=== PATIENT | male | born 1945 | race Caucasian/White ===

== ENCOUNTER 2020-06-01 00:50 | Outpatient (CLI) | payer MEDICARE, BC, SELFPAY ==
--- NOTE | 2020-06-01 10:30 | DI.NM_ITS ---
APPROVED REPORT Exam: Exercise Treadmill Patient Location: Out-Patient Room/Bed: Stress Nurse: Michaela Hanna RN BMI: 27.47 Baseline Rhythm: Sinus Bradycardia Indications: Esophogeal cancer, Pre op, Renal transplant. Medical History Medical History: HTN, HLD, CKD s/p living donor right renal transplant, Esophageal cancer. Cardiac Medications: Aspirin, Metoprolol-hydrochlorothiazide, Lisinopril, Omeprazole, Prednisone, Sim vastatin. Allergies: No known drug allergies Cardiac Risk Factors: HTN, Hyperlipidemia, FHX of CAD Previous Cardiac Procedures: None. Pretest Chest Pain Characteristics: No chest pain Exercise History: Sedentary Physical Disabilities: None. Lung Sounds: Clear to auscultation Heart Sounds: Regular Stress Test Details Test: Exercise stress testing was performed using a Benji protocol. Nuclear Acquisition: Rest Tc-99m/Stress Tc-99m 1 day Rest Isotope: Tc-99m Sestamibi. Dose: 12.1 Date: 06/01/2020 Injection Time: 1045 Stress Isotope: Tc-99m Sestamibi. Dose: 38.1 Date: 06/01/2020 Injection Time: 1305 HR Resting HR Supine: 47 bpm Max Heart Rate (APMHR): 146 bpm Resting HR Standin bpm Target HR (85% APMHR): 124 bpm Max HR Achieved: 130 bpm % of APMHR: 89 Recovery HR: 75 bpm HR response to stress: Normal HR response to stress Comment: patient did not hold beta renetta. BP Resting BP Supine: 150/88 mmHg Resting BP Standin/82 mmHg Max BP: 168/70 mmHg Recovery BP: 148/82 mmHg BP response to stress: Normal blood pressure response to stress. ECG Resting ECG: Sinus Bradycardia Ectopy: None. Stress ECG: Sinus Tachycardia ST Change: No significant ST segment changes noted. Arrhythmia: None. Recovery ECG: Sinus Bradycardia Recovery ST Change: No significant ST segment changes noted. Clinical Reason for Termination: Fatigue Stress Symptoms: General Fatigue Exercise duration: 09 min16 sec Highest Stage Reached: Stage 3: 3.4 mph at 14% grade. Exercise capacity: 10.6 METs Stress ECG Conclusion 1. The patient exercised for 9 minutes (10 minutes). Exercise was stopped due to fatigue. 2. The patient had no symptoms suggestive of ischemia. 3. There is no evidence of ischemia on the EKG portion of the exam. Stress Test Summary STAGE Time (mins) Speed (mph) Grade (%) HR BP SYMPTOMS METS Supine 47 150/88 Standing 63 143/82 1 3 1.7 10 107 154/80 4.6 2 6 2.5 12 114 162/78 7 1 min recovery 115 168/70 3 min recovery 78 160/74 6 min recovery 75 148/82 MPI Conclusion The ejection fraction was 50% with stress. There were no wall motion abnormalities. There was no evidence of ischemia on the imaging portion of the exam. This represents a normal SPECT stress test.
== END 2020-06-01 01:10 ==
PROVIDERS: PCP Family Medicine; Visit Provider Thoracic Surgery (Cardiothoracic Vascular Surgery)
DX: Z01.810 Encounter for preprocedural cardiovascular examination (principal); C15.9 Malignant neoplasm of esophagus, unspecified; Z94.0 Kidney transplant status; I10 Essential (primary) hypertension; E78.5 Hyperlipidemia, unspecified; Z82.49 Family history of ischemic heart disease and other diseases of the circulatory system
CPT/HCPCS: 78452; 93016; 93018; 93017

== ENCOUNTER 2020-06-26 03:49 | Outpatient (CLI) | payer MEDICARE, BC, SELFPAY ==
[2020-06-26 08:01] LABS: Abs Immature Grans 0.02 10^3/uL (0.0-0.06); Absolute Basophil Count 0.02 10^3/uL (0.0-0.2); Absolute Eosinophil Count 0.15 10^3/uL (0.0-0.7); Absolute Lymphocyte Count 1.25 10^3/uL (1.2-3.4); Absolute Monocyte Count 0.48 10^3/uL (0.1-0.8); Absolute Neutrophil Count 4.72 10^3/uL (1.2-6.7); Basophils % 0.3; Eosinophils % 2.3; HCT 40.8 % (40.0-50.0); HGB 13.9 g/dL (13.5-17.5); Immature Grans % 0.3; Lymphocytes % 18.8; MCH 31.4 pg (27.0-33.0); MCHC 34.1 % (32.0-36.0); MCV 92.1 fL (80-95); MPV 10.2 fL (8.0-11.0); Monocytes % 7.2; Neutrophils % 71.1; Nucleated RBC 0 %; Platelet Count 132 10^3/uL (130-400); RBC 4.43 10^6/uL (4.36-5.78); RDW 12.7 % (11.8-14.1); RDW-SD 42.7 fL; WBC 6.64 10^3/uL (4.4-10.8)
[2020-06-26 08:12] LABS: ALT 35 U/L (16-63); AST 20 U/L (15-37); Albumin 3.8 g/dL (3.4-5.0); Alkaline Phosphatase 49 U/L (46-116); Anion Gap 6.3 mmol/L (3-11); Bilirubin, Total 0.5 mg/dL (0.2-1.0); CO2 27.7 mmol/L (21.0-32.0); CREATININE 1.38 mg/dL (0.70-1.30); Calcium 8.6 mg/dL (8.5-10.1); Chloride 105 mmol/L (98-107); Estimated GFR 50.37 (mL/min/1.73m2); Glucose 157 mg/dL (74-106); Magnesium 1.6 mg/dL (1.8-2.4); Potassium 3.9 mmol/L (3.5-5.1); Sodium 139 mmol/L (136-145); Total Protein 6.9 g/dL (6.4-8.2)
[2020-06-26 08:27] LABS: BUN 22 mg/dL (7-18)
== END 2020-06-26 04:09 ==
PROVIDERS: PCP Family Medicine; Visit Provider Internal Medicine Medical Oncology
DX: C15.5 Malignant neoplasm of lower third of esophagus (principal)
CPT/HCPCS: 36415; 80053; 83735; 85025

== ENCOUNTER 2020-07-03 02:35 | Outpatient (CLI) | payer MEDICARE, BC, SELFPAY ==
[2020-07-03 07:53] LABS: Abs Immature Grans 0.07 10^3/uL (0.0-0.06); Absolute Basophil Count 0.02 10^3/uL (0.0-0.2); Absolute Eosinophil Count 0.08 10^3/uL (0.0-0.7); Absolute Lymphocyte Count 0.57 10^3/uL (1.2-3.4); Absolute Monocyte Count 0.18 10^3/uL (0.1-0.8); Absolute Neutrophil Count 3.92 10^3/uL (1.2-6.7); Basophils % 0.4; Eosinophils % 1.7; HCT 40.4 % (40.0-50.0); HGB 13.6 g/dL (13.5-17.5); Immature Grans % 1.4; Lymphocytes % 11.8; MCH 31.3 pg (27.0-33.0); MCHC 33.7 % (32.0-36.0); MCV 92.9 fL (80-95); MPV 10.6 fL (8.0-11.0); Monocytes % 3.7; Nucleated RBC 0 %; Platelet Count 136 10^3/uL (130-400); RBC 4.35 10^6/uL (4.36-5.78); RDW 12.5 % (11.8-14.1); RDW-SD 42.5 fL; WBC 4.84 10^3/uL (4.4-10.8)
[2020-07-03 08:20] LABS: ALT 32 U/L (16-63); AST 18 U/L (15-37); Albumin 3.7 g/dL (3.4-5.0); Alkaline Phosphatase 46 U/L (46-116); BUN 24 mg/dL (7-18); Bilirubin, Total 0.5 mg/dL (0.2-1.0); CREATININE 1.23 mg/dL (0.70-1.30); Calcium 8.8 mg/dL (8.5-10.1); Chloride 106 mmol/L (98-107); Estimated GFR 57.52 (mL/min/1.73m2); Glucose 200 mg/dL (74-106); Magnesium 1.6 mg/dL (1.8-2.4); Potassium 4.6 mmol/L (3.5-5.1); Sodium 140 mmol/L (136-145); Total Protein 6.9 g/dL (6.4-8.2)
== END 2020-07-03 02:55 ==
PROVIDERS: PCP Family Medicine; Visit Provider Internal Medicine Medical Oncology
DX: C15.5 Malignant neoplasm of lower third of esophagus (principal)
CPT/HCPCS: 36415; 80053; 83735; 85025

== ENCOUNTER 2020-07-10 03:07 | Outpatient (CLI) | payer MEDICARE, BC, SELFPAY ==
[2020-07-10 07:52] LABS: Abs Immature Grans 0.04 10^3/uL (0.0-0.06); Absolute Basophil Count 0.02 10^3/uL (0.0-0.2); Absolute Eosinophil Count 0.07 10^3/uL (0.0-0.7); Absolute Lymphocyte Count 0.47 10^3/uL (1.2-3.4); Absolute Monocyte Count 0.27 10^3/uL (0.1-0.8); Basophils % 0.4; Eosinophils % 1.5; HCT 41.2 % (40.0-50.0); HGB 14.1 g/dL (13.5-17.5); Immature Grans % 0.8; Lymphocytes % 9.9; MCH 31.5 pg (27.0-33.0); MCHC 34.2 % (32.0-36.0); MPV 10.3 fL (8.0-11.0); Monocytes % 5.7; Neutrophils % 81.7; Nucleated RBC 0 %; Platelet Count 129 10^3/uL (130-400); RBC 4.48 10^6/uL (4.36-5.78); RDW 12.6 % (11.8-14.1); RDW-SD 41.3 fL; WBC 4.77 10^3/uL (4.4-10.8)
[2020-07-10 08:07] LABS: ALT 36 U/L (16-63); AST 21 U/L (15-37); Alkaline Phosphatase 48 U/L (46-116); Anion Gap 7.6 mmol/L (3-11); BUN 39 mg/dL (7-18); Bilirubin, Total 0.8 mg/dL (0.2-1.0); CO2 26.4 mmol/L (21.0-32.0); CREATININE 1.64 mg/dL (0.70-1.30); Chloride 104 mmol/L (98-107); Estimated GFR 41.27 (mL/min/1.73m2); Glucose 189 mg/dL (74-106); Magnesium 1.5 mg/dL (1.8-2.4); Potassium 4.2 mmol/L (3.5-5.1); Sodium 138 mmol/L (136-145); Total Protein 7.2 g/dL (6.4-8.2)
== END 2020-07-10 03:27 ==
PROVIDERS: PCP Family Medicine; Visit Provider Internal Medicine Medical Oncology
DX: C15.5 Malignant neoplasm of lower third of esophagus (principal)
CPT/HCPCS: 36415; 80053; 83735; 85025

== ENCOUNTER 2020-07-17 05:15 | Outpatient (CLI) | payer MEDICARE, BC, SELFPAY ==
[2020-07-17 07:46] LABS: Abs Immature Grans 0.03 10^3/uL (0.0-0.06); Absolute Basophil Count 0.02 10^3/uL (0.0-0.2); Absolute Eosinophil Count 0.03 10^3/uL (0.0-0.7); Absolute Monocyte Count 0.37 10^3/uL (0.1-0.8); Absolute Neutrophil Count 2.96 10^3/uL (1.2-6.7); Basophils % 0.5; Eosinophils % 0.8; HCT 41.9 % (40.0-50.0); HGB 14.1 g/dL (13.5-17.5); Immature Grans % 0.8; Lymphocytes % 8.1; MCHC 33.7 % (32.0-36.0); MCV 92.1 fL (80-95); Neutrophils % 79.8; Nucleated RBC 0 %; Platelet Count 106 10^3/uL (130-400); RBC 4.55 10^6/uL (4.36-5.78); RDW 12.8 % (11.8-14.1); RDW-SD 41.2 fL; WBC 3.71 10^3/uL (4.4-10.8)
[2020-07-17 08:05] LABS: ALT 38 U/L (16-63); AST 18 U/L (15-37); Albumin 3.8 g/dL (3.4-5.0); Alkaline Phosphatase 46 U/L (46-116); Anion Gap 7.8 mmol/L (3-11); BUN 36 mg/dL (7-18); Bilirubin, Total 0.7 mg/dL (0.2-1.0); CO2 25.2 mmol/L (21.0-32.0); CREATININE 1.52 mg/dL (0.70-1.30); Calcium 8.8 mg/dL (8.5-10.1); Chloride 104 mmol/L (98-107); Estimated GFR 45.05 (mL/min/1.73m2); Glucose 196 mg/dL (74-106); Magnesium 1.5 mg/dL (1.8-2.4); Potassium 3.8 mmol/L (3.5-5.1); Sodium 137 mmol/L (136-145)
== END 2020-07-17 05:35 ==
PROVIDERS: PCP Family Medicine; Visit Provider Internal Medicine
DX: C15.5 Malignant neoplasm of lower third of esophagus (principal)
CPT/HCPCS: 36415; 80053; 83735; 85025

== ENCOUNTER 2020-07-31 03:19 | Outpatient (CLI) | payer MEDICARE, BC, SELFPAY ==
[2020-07-31 10:32] LABS: MCH 31.7 pg (27.0-33.0); MCHC 34.2 % (32.0-36.0); MCV 92.7 fL (80-95); MPV 9.6 fL (8.0-11.0); Nucleated RBC 0 %; RDW-SD 45.1 fL; WBC 4.21 10^3/uL (4.4-10.8)
[2020-07-31 10:43] LABS: ALT 41 U/L (16-63); AST 25 U/L (15-37); Albumin 3.2 g/dL (3.4-5.0); Alkaline Phosphatase 59 U/L (46-116); Anion Gap 6.9 mmol/L (3-11); BUN 26 mg/dL (7-18); Bilirubin, Total 0.5 mg/dL (0.2-1.0); CO2 28.1 mmol/L (21.0-32.0); CREATININE 1.1 mg/dL (0.70-1.30); Calcium 8.8 mg/dL (8.5-10.1); Chloride 101 mmol/L (98-107); Glucose 204 mg/dL (74-106); Magnesium 1.7 mg/dL (1.8-2.4); Sodium 136 mmol/L (136-145); Total Protein 6.9 g/dL (6.4-8.2)
[2020-07-31 10:58] LABS: Absolute Basophil Count 0.04 10^3/uL (0.0-0.2); Absolute Lymphocyte Count 0.08 10^3/uL (1.2-3.4); Absolute Monocyte Count 0.59 10^3/uL (0.1-0.8); Absolute Neutrophil Count 3.28 10^3/uL (1.2-6.7); Atypical Lymphocytes % 1; Bands % 11; Platelet Count 132 10^3/uL (130-400)
[2020-07-31 10:59] LABS: Diff Comment Manual Differential; Metamyelocytes % 2; Myelocytes % 3; RBC Morphology Normal
== END 2020-07-31 03:20 | disposition home or self-care (01) ==
LOC: LBO 03:19
PROVIDERS: PCP Family Medicine; Visit Provider Internal Medicine Medical Oncology
DX: C15.5 Malignant neoplasm of lower third of esophagus (principal)
CPT/HCPCS: 36415; 80053; 83735; 85025

== ENCOUNTER 2022-04-08 14:20 | Outpatient (CLI) | payer MEDICARE, BC, SELFPAY ==
[2022-04-08 13:30] LABS: Abs Immature Grans 0.06 10^3/uL (0.0-0.06); Absolute Basophil Count 0.03 10^3/uL (0.0-0.2); Absolute Eosinophil Count 0.11 10^3/uL (0.0-0.7); Absolute Lymphocyte Count 1.25 10^3/uL (1.2-3.4); Absolute Neutrophil Count 7.68 10^3/uL (1.2-6.7); Basophils % 0.3; Eosinophils % 1.1; HCT 37.7 % (40.0-50.0); HGB 12.4 g/dL (13.5-17.5); Immature Grans % 0.6; Lymphocytes % 12.8; MCH 30.6 pg (27.0-33.0); MCHC 32.9 % (32.0-36.0); MCV 93 fL (80-95); MPV 9.3 fL (8.0-11.0); Monocytes % 6.2; Platelet Count 148 10^3/uL (130-400); RBC 4.05 10^6/uL (4.36-5.78); RDW 13.2 % (11.8-14.1); RDW-SD 45.2 fL; WBC 9.73 10^3/uL (4.4-10.8)
[2022-04-08 13:43] LABS: ALT 22 U/L (16-63); AST 21 U/L (15-37); Albumin 3.7 g/dL (3.4-5.0); Alkaline Phosphatase 69 U/L (46-116); Anion Gap 7.1 mmol/L (3-11); BUN 27 mg/dL (7-18); Bilirubin, Total 0.4 mg/dL (0.2-1.0); CO2 28.9 mmol/L (21.0-32.0); CREATININE 1.1 mg/dL (0.70-1.30); Calcium 8.9 mg/dL (8.5-10.1); Chloride 107 mmol/L (98-107); Estimated GFR 69.57 (mL/min/1.73m2); Glucose 112 mg/dL (74-106); Potassium 4.5 mmol/L (3.5-5.1); Sodium 143 mmol/L (136-145); Total Protein 7.1 g/dL (6.4-8.2)
== END 2022-04-08 14:21 | disposition home or self-care (01) ==
PROVIDERS: PCP Family Medicine; Visit Provider Internal Medicine Medical Oncology
DX: C15.5 Malignant neoplasm of lower third of esophagus (principal)
CPT/HCPCS: 36415; 80053; 85025

== ENCOUNTER 2023-10-03 09:34 | Day surgery (SDC) | payer MEDICARE, BC, SELFPAY ==
[2023-10-03 10:23] VITALS: BP 126/88; PULSE 66; RESP 16; TEMP 36.6; O2SAT 99
--- NOTE | 2023-10-03 10:38 | W.ANESPRE ---
General Info Date of Service Date Performed: 10/03/23 Height: 6 ft 2 in Weight: 76.5 kg Body Mass Index (BMI): 21.6 Surgical Procedure: Operation Date: 10/03/23 12:40 Proposed Procedure Side Surgeon p Cataract Extraction with IOL Implant Left Naeem Austin MD Meds Allergies and Home Medications Allergies Allergy/AdvReac Type Severity Reaction Status Date / Time No Known Drug Allergies Allergy Other (See Verified 10/03/23 10:17 Comment) Home Medication Medication Instructions Recorded acetaminophen 500 mg capsule 500 mg PO Q6H PRN 10/01/23 aspirin 81 mg tablet,delayed 81 mg PO DAILY 10/01/23 release (Adult Aspirin Regimen) calcium carbonate 600 mg calcium 600 mg PO DAILY 10/01/23 (1,500 mg) tablet cholecalciferol (vitamin D3) 25 25 mcg PO DAILY 10/01/23 mcg (1,000 unit) chewable tablet (Vitamin D3) levothyroxine 50 mcg tablet 50 mcg PO DAILY 10/01/23 lisinopril 10 mg tablet 10 mg PO DAILY 10/01/23 mycophenolate mofetil 250 mg 250 mg PO DAILY 10/01/23 capsule (CellCept) mycophenolate sodium 360 mg 360 mg PO DAILY 10/01/23 tablet,delayed release (Myfortic) niacinamide 500 mg tablet 1,000 mg PO DAILY 10/01/23 sertraline 50 mg tablet 50 mg PO DAILY 10/01/23 simvastatin 20 mg tablet 20 mg PO DAILY 10/01/23 tacrolimus 0.5 mg capsule, 1 mg PO DIRECTED 10/01/23 immediate-release (Prograf) tamsulosin 0.4 mg capsule 0.4 mg PO DAILY 10/01/23 vitamins A,C,R-nefq-dtenyr 2,148 2 tab PO DAILY 10/01/23 mcg-113 mg-45 mg-17.4 mg tablet (PreserVision AREDS) Current Visit Medications: Current Medications Generic Name Dose Route Start Last Admin Trade Name Freq PRN Reason Stop Dose Admin Acetaminophen 1,000 mg 10/03/23 06:00 Acetaminophen 500 Mg Tab PO 11/02/23 05:59 Q4H PRN PRN Balanced Salt Solution 500 ml 10/03/23 06:00 Balanced Salt Soln.-Plus 500 Ml Bag OP 11/02/23 05:59 DIRECTED VIVIAN Miscellaneous Medication 0 ml 10/03/23 06:00 Prednisolone 1%, Moxifloxacin 0.5%, Bromfenac 0.09% 5ml Btl OS 11/02/23 05:59 DIRECTED VIVIAN Miscellaneous Medication 0 ml 10/03/23 06:00 10/03/23 10:36 Tropicam./Phenyleph. 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 cataract, left eye H25.012 Nuclear age-related cataract, left eye H25.12 Medical History Medical History (Updated 10/02/23 @ 20:46 by Naeem Austin MD) Overweight Injury of tendon of biceps Essential hypertension Depressive disorder Paraesophageal hernia Hiatal hernia Pneumonia Lumbar transverse process fracture Dislodged jejunostomy tube Malignant neoplasm of lower third of esophagus Esophageal dysphagia Surgical History Surgical History Hx of esophagogastroduodenoscopy Hx of colonoscopy Renal transplant recipient Tobacco Smoking/Tobacco Use Status: Never Alcohol Alcohol Intake: current Alcohol intake frequency: a few times a week Alcohol type: beer Substance Use Substance use: Occasionally Substance use type: marijuana Vital Signs and Lab Results Vital Signs Most Recent Vital Signs in EMR: Most Recent Vital Signs Temp Pulse Resp BP Pulse Ox 36.6 C 66 16 126/88 99 10/03/23 10:23 10/03/23 10:23 10/03/23 10:23 10/03/23 10:23 10/03/23 10:23 Lab Results Blood Type / Crossmatch: No Data to Display Complete Blood Count: No Data to Display Complete Metabolic Panel: No Data to Display Liver Function Panel: No Data to Display Coagulation Panel: No Data to Display Cardiac Panel: No Data to Display Arterial Blood Gas: No Data to Display Venous Blood Gas: No Data to Display Pancreas Panel: No Data to Display Thyroid Panel: No Data to Display Infectious Disease: No Data to Display Blood Cultures: No Data to Display Toxicology Panel: No Data to Display Anesthesia Assessment and Plan Anesthesia History Personal History: No History of Anesthesia Complications Family History: No Family History of Anesthesia Complications Exercise Tolerance Exercise Tolerance: Metabolic Equivalents>4 Pertinent Negatives Pertinent Negatives: No Symptoms of GERD Cardiac & Pulmonary Exam Cardiac Exam: Normal S1/S2 Heart Sounds Pulmonary Exam: Clear Bilateral Breath Sounds Implantable Cardiac Device Does patient have a Pacemaker or an ICD?: No Airway Exam Known Difficult Airway: No Mallampati Class: 2 Mouth Opening: Normal (> 3cm) Thyromental Distance: Greater than 3 cm Neck Range of Motion: Full ROM Neck Circumference: Normal Teeth Condition: Normal Dentition ASA Classification ASA Score: ASA 3 Emergency Case?: No NPO Status NPO Status: NPO Clears >2 hours, Solids >8 hours Anesthesia Plan Resuscitation Status: Full Code Anesthesia Technique: MAC Anesthesia Airway Planned: Natural Airway Monitors Used: Standard Monitors
[2023-10-03 10:39] VITALS: BMI 21.6
[2023-10-03] MEDS: Balanced Salt Soln.-PLUS 500 ML BAG OP (11:30)
[2023-10-03] MEDS: Duovisc Viscoelastic System EACH 1 EACH (11:31)
[2023-10-03] MEDS: Tetracaine 0.5% 4 ML BTL OS (11:31)
[2023-10-03] MEDS: Lidocaine 1% Pres-Free 5 ML VIAL (11:31)
[2023-10-03] MEDS: Povidone-Iodine Ophth 30 ML BTL (11:33)
[2023-10-03 11:53] VITALS: BP 150/97; PULSE 56; RESP 16; TEMP 36.4; O2SAT 99
--- NOTE | 2023-10-03 11:56 | W.ANESPOSTOP ---
Postoperative Evaluation Date, Time and Location Date Performed: 10/03/23 Time Performed: 11:56 Patient Location: Day Surgery Unit Vital Signs Most Recent Imported Vital Signs: Most Recent Vital Signs Temp Pulse Resp BP Pulse Ox 36.4 C L 56 L 16 150/97 H 99 10/03/23 11:53 10/03/23 11:53 10/03/23 11:53 10/03/23 11:53 10/03/23 11:53 Pain Score Most Recent Pain Score: Most Recent Pain Score Pain Level 0 10/03/23 10:23 Assessment Mental Status: Awake (Alert & Oriented to Patient Baseline) Airway and Respiratory Function: Patent airway with normal (patient baseline) respiratory exam Cardiovascular Function: Hemodynamically Stable Hydration Status: Adequately Hydrated Nausea & Vomiting: No Nausea or Vomiting Pain: Pt. Denies Any Pain Peripheral Nerve Block: Patient did not receive a nerve block
--- NOTE | 2023-10-03 11:57 | W.ANESPOSTOP ---
Postoperative Evaluation Date, Time and Location Date Performed: 10/03/23 Time Performed: 11:58 Patient Location: Day Surgery Unit Vital Signs Most Recent Imported Vital Signs: Most Recent Vital Signs Temp Pulse Resp BP Pulse Ox 36.4 C L 56 L 16 150/97 H 99 10/03/23 11:53 10/03/23 11:53 10/03/23 11:53 10/03/23 11:53 10/03/23 11:53 Most Recent Vital Signs Temp Pulse Resp BP Pulse Ox 36.4 C L 56 L 16 150/97 H 99 10/03/23 11:53 10/03/23 11:53 10/03/23 11:53 10/03/23 11:53 10/03/23 11:53 Pain Score Most Recent Pain Score: Most Recent Pain Score Pain Level 0 10/03/23 10:23 Assessment Mental Status: Awake (Alert & Oriented to Patient Baseline) Airway and Respiratory Function: Patent airway with normal (patient baseline) respiratory exam Cardiovascular Function: Hemodynamically Stable Hydration Status: Adequately Hydrated Nausea & Vomiting: No Nausea or Vomiting Pain: Pt. Denies Any Pain Peripheral Nerve Block: Patient did not receive a nerve block
--- NOTE | 2023-10-03 12:03 | W.PM.DSUDISC ---
Date of service: 10/03/23 Time of Service: 12:03 Discharge Plan Disposition Patient Disposition: Home Discharge Details Attending Provider: Naeem Austin Primary Care Provider: Mago Zhang Home Meds and New Rx's Prescriptions: No Action levothyroxine 50 mcg tablet 50 mcg PO DAILY Patient Comments: TAKE 1 TABLET BY MOUTH IN THE MORNING sertraline 50 mg tablet 50 mg PO DAILY Patient Comments: TAKE 1 TABLET BY MOUTH ONCE DAILY lisinopril 10 mg tablet 10 mg PO DAILY Patient Comments: TAKE 1 TABLET BY MOUTH ONCE DAILY niacinamide 500 mg tablet 1,000 mg PO DAILY Patient Comments: TAKE 2 TABLETS BY MOUTH DAILY tamsulosin 0.4 mg capsule 0.4 mg PO DAILY Patient Comments: TAKE 1 CAPSULE BY MOUTH ONCE DAILY mycophenolate sodium [Myfortic] 360 mg tablet,delayed release (DR/EC) 360 mg PO DAILY acetaminophen 500 mg capsule 500 mg PO Q6H PRN mycophenolate mofetil [CellCept] 250 mg capsule 250 mg PO DAILY calcium carbonate 600 mg calcium (1,500 mg) tablet 600 mg PO DAILY tacrolimus [Prograf] 0.5 mg capsule 1 mg PO DIRECTED PreserVision AREDS 2,148 mcg-113 mg-45 mg-17.4mg tablet 2 tab PO DAILY Rx Instructions: administer with a meal cholecalciferol (vitamin D3) [Vitamin D3] 25 mcg (1,000 unit) tablet,chewable 25 mcg PO DAILY simvastatin 20 mg tablet 20 mg PO DAILY Patient Comments: TAKE 1 TABLET BY MOUTH ONCE DAILY AT NIGHT AT BEDTIME aspirin [Adult Aspirin Regimen] 81 mg tablet,delayed release (DR/EC) 81 mg PO DAILY Discharge Instructions Stand Alone Forms: [facility] Post-Op Cataract, Senia Fox ([facility]) Discharge Orders Discharge Orders: Discharge Order (Routine); Ordered 10/03/23 Ordered By: Naeem Austin DS: Diagnosis Discharge Diagnosis (1) Cortical age-related cataract, left eye: Status: Resolved (2) Nuclear age-related cataract, left eye: Status: Resolved
--- NOTE | 2023-10-03 12:03 | W.PM.OP ---
Date of service: 10/03/23 Time of Service: 12:03 Operative Note Operative Note DATE OF PROCEDURE: 10/03/23 PRE-OP DIAGNOSIS: Nuclear/cortical cataract, left eye Poorly dilating pupil, left eye POST-OP DIAGNOSIS: same PROCEDURE: Cataract extraction using phacoemulsification with intraocular lens implant, left eye Pupillary dilation and iris stabilization with 7.0 mm pupillary expansion device SURGEON: Naeem Austin ANESTHESIA TYPE: Local By Surgeon and MAC Refer to Anesthesia Record PATHOLOGY: none sent COMPLICATIONS: None Patient was transported to: same day Patient's condition: stable Implants: Joe Clareon [id number] Indications: Progressive decreased vision due to cataract, left eye Procedure Description: CATARACT SURGERY OPERATIVE REPORT PREOPERATIVE DIAGNOSIS: Nuclear/cortical cataract, left eye Poorly dilating pupil, left eye POSTOPERATIVE DIAGNOSIS: Same OPERATION: Cataract extraction using phacoemulsification with posterior chamber intraocular lens implant, left eye. Pupillary dilation and iris stabilization with 7.0 mm pupillary expansion device IOL: IOL Cryptoanalysis Teacher/Model: Joe Clareon [id number] IOL Power: + 24.5 diopters IOL Serial Number: [id number] Optic Diameter: 6.0mm Haptic/Overall Diameter: 13.0mm PHACO INFO: Joe Acomniurion Vision System with OZil and Active Fluidics Cumulative Dispersed Energy (CDE): 4.83 seconds SURGEON: Naeem Austin MD, MARLINE ANESTHESIA: Monitored Anesthesia Care (MAC), with local sub-tenon's anesthetic infiltration COMPLICATIONS: None SPECIMENS: None INDICATIONS FOR PROCEDURE: The patient is a 77-year-old male with history of diminished visual acuity in his left eye secondary to the development of significant nuclear/cortical cataract. He is significantly symptomatic that he desires cataract surgery attempt to improve and maximize his vision. Undilated pupil size is 1.5 mm. Dilated pupil size is 4.0 mm. See office notes for detailed information. PROCEDURE: The correct surgical eye was identified and marked as the left eye and the pupil was dilated in the preoperative area using mydriatics and cycloplegics. The dilated pupil size was 4.0 mm. The patient elected to proceed without oral sedation. The patient was brought to the operating room where cardiopulmonary monitoring was instituted and surgical time-out was performed, confirming the correct operative eye and IOL power. Topical anesthesia was administered and ophthalmic povidone-iodine 5% was instilled into the conjunctival fornices. The torie-ocular area was prepped with Betadine 10% solution and draped in the usual sterile fashion for intraocular surgery, including an aperture drape. A Tegaderm transparent film dressing was cut in half and used to cover the lashes and lid margins. Care was taken to sequester the lashes and lid margins under the Tegaderm dressing. A lid speculum was placed between the lids of the operative eye and the Joe LuxOR Revalia operating microscope was maneuvered into position. Kenny scissors were then used to make a conjunctival buttonhole approximately 6mm posterior to the limbus in the inferonasal quadrant. Blunt dissection was carried out to expose bare sclera, and a blunt-tipped sub-tenon?s anesthesia cannula was introduced and passed posteriorly along the globe where non-preserved plain lidocaine was injected into posterior sub-Tenon?s space. A sideport knife was used to make a paracentesis port. Intraocular phenylephrine/lidocaine was injected into the anterior chamber. The anterior chamber was then filled with viscoelastic. A keratome knife was used construct a two-plane clear corneal tunnel extending 2.0mm into clear cornea. A 7.0 mm pupillary expansion device was inserted into the pupillary space and engaged with the Koogler hook. A flap was raised on the anterior capsule and capsulorhexis forceps were used to complete a continuous curvilinear capsulorhexis of 5.0 mm. Balanced salt solution was then used to perform cortical cleaving hydrodissection and nuclear hydrodelineation until the lens could be freely rotated within the capsular bag. The lens nucleus was then disassembled and removed within the capsular bag and iris plane using phacoemulsification. Residual cortical material was removed using the irrigation/aspiration handpiece. The posterior capsule was carefully polished to remove as much residual lens epithelial cells as safely possible. The capsular bag was then inflated and the anterior chamber deepened with viscoelastic. The lens implant described above was inserted into the capsular bag using the Joe Autonome Injector. A Kuglen hook was used to dial the IOL into position. The pupil expansion device was then removed in the reverse order of its insertion. Residual viscoelastic was then removed first from posterior to the IOL, then from the anterior chamber using the I/A handpiece. The lens implant was noted to center nicely within the capsular bag. The incisions were stromally hydrated, and the anterior chamber was reformed using BSS. Then 0.5cc of moxifloxacin 1.0mg/ml were injected into the capsular bag and anterior chamber. The incisions were checked with a Weck spear and found to be secure. Several drops of ophthalmic povidone-iodine 5% were then applied to the eye followed by two drops of combination steroid/NSAID/antibiotic solution. The drapes were removed and a clear plastic protective eye shield was placed over the eye. The patient was then returned to Same Day Surgery in stable condition.
== END 2023-10-03 12:14 | disposition home or self-care (01) ==
LOC: SUR 09:35
PROVIDERS: PCP Family Medicine; Visit Provider Ophthalmology
PROC: (CPT 66982; principal; 2023-10-03 12:30)
DX: H25.012 Cortical age-related cataract, left eye (principal); H25.12 Age-related nuclear cataract, left eye; I10 Essential (primary) hypertension
CPT/HCPCS: 66982; 00123; V2632; J2003

== ENCOUNTER 2023-10-17 09:40 | Day surgery (SDC) | payer MEDICARE, BC, SELFPAY ==
--- NOTE | 2023-10-17 06:43 | W.ANESPRE ---
General Info Date of Service Date Performed: 10/17/23 Height: 6 ft 2 in Weight: 76.5 kg Body Mass Index (BMI): 21.6 Surgical Procedure: Operation Date: 10/17/23 12:25 Proposed Procedure Side Surgeon p Cataract Extraction with IOL Implant Right Naeem Austin MD Meds Allergies and Home Medications Allergies Allergy/AdvReac Type Severity Reaction Status Date / Time No Known Drug Allergies Allergy Other (See Verified 10/17/23 10:09 Comment) Home Medication Medication Instructions Recorded acetaminophen 500 mg capsule 500 mg PO Q6H PRN 10/01/23 aspirin 81 mg tablet,delayed 81 mg PO DAILY 10/01/23 release (Adult Aspirin Regimen) calcium carbonate 600 mg PO DAILY 10/01/23 cholecalciferol (vitamin D3) 25 25 mcg PO DAILY 10/01/23 mcg (1,000 unit) chewable tablet (Vitamin D3) levothyroxine 50 mcg tablet 50 mcg PO DAILY 10/01/23 lisinopril 10 mg tablet 10 mg PO DAILY 10/01/23 mycophenolate mofetil 250 mg 250 mg PO DAILY 10/01/23 capsule (CellCept) mycophenolate sodium 360 mg 360 mg PO DAILY 10/01/23 tablet,delayed release (Myfortic) niacinamide 500 mg tablet 1,000 mg PO DAILY 10/01/23 sertraline 50 mg tablet 50 mg PO DAILY 10/01/23 simvastatin 20 mg tablet 20 mg PO DAILY 10/01/23 tacrolimus 0.5 mg capsule, 1 mg PO DIRECTED 10/01/23 immediate-release (Prograf) tamsulosin 0.4 mg capsule 0.4 mg PO DAILY 10/01/23 vitamins A,C,M-rnxa-yvbrux 2,148 2 tab PO DAILY 10/01/23 mcg-113 mg-45 mg-17.4 mg tablet (PreserVision AREDS) Current Visit Medications: Current Medications Generic Name Dose Route Start Last Admin Trade Name Freq PRN Reason Stop Dose Admin Acetaminophen 1,000 mg 10/17/23 06:00 Acetaminophen 500 Mg Tab PO 11/16/23 05:59 Q4H PRN PRN Balanced Salt Solution 500 ml 10/17/23 06:00 Balanced Salt Soln.-Plus 500 Ml Bag OP 11/16/23 05:59 DIRECTED VIVIAN Miscellaneous Medication 0 ml 10/17/23 06:00 Prednisolone 1%, Moxifloxacin 0.5%, Bromfenac 0.09% 5ml Btl OD 11/16/23 05:59 DIRECTED [facility] Miscellaneous Medication 0 ml 10/17/23 06:00 Tropicam./Phenyleph. (1/2.5%) 10 Ml Btl OD 11/16/23 05:59 DIRECTED [facility] Tetracaine HCl 0 ml 10/17/23 06:00 Tetracaine 0.5% 4 Ml Btl OD 11/16/23 05:59 DIRECTED [facility] PFSH Active Problems Active Problems: Problem Status Onset Code Cortical age-related cataract, right eye H25.011 Nuclear age-related cataract, right eye H25.11 Cortical age-related cataract, left eye H25.012 Nuclear age-related cataract, left eye H25.12 Medical History Medical History (Updated 10/16/23 @ 21:20 by Naeem Austin MD) Overweight Injury of tendon of biceps Essential hypertension Depressive disorder Paraesophageal hernia Hiatal hernia Pneumonia Lumbar transverse process fracture Dislodged jejunostomy tube Malignant neoplasm of lower third of esophagus Esophageal dysphagia Surgical History Surgical History Hx of esophagogastroduodenoscopy Hx of colonoscopy Renal transplant recipient Tobacco Smoking/Tobacco Use Status: Never Alcohol Alcohol Intake: current Alcohol intake frequency: a few times a week Alcohol type: beer Substance Use Substance use: Occasionally Substance use type: marijuana Vital Signs and Lab Results Vital Signs Most Recent Vital Signs in EMR: Temp Pulse Resp BP Pulse Ox 36.3 C L 55 L 18 132/89 100 10/17/23 10:12 10/17/23 10:12 10/17/23 10:12 10/17/23 10:12 10/17/23 10:12 Lab Results Blood Type / Crossmatch: No Data to Display Complete Blood Count: No Data to Display Complete Metabolic Panel: No Data to Display Liver Function Panel: No Data to Display Coagulation Panel: No Data to Display Cardiac Panel: No Data to Display Arterial Blood Gas: No Data to Display Venous Blood Gas: No Data to Display Pancreas Panel: No Data to Display Thyroid Panel: No Data to Display Infectious Disease: No Data to Display Blood Cultures: No Data to Display Toxicology Panel: No Data to Display Imaging and Studies Imaging and Studies Study information below may be from another EMR and interpreted by another provider. Please see original notes in EMR for more complete details. Stress Test Summary: 06/11: The ejection fraction was 50% with stress. There were no wall motion abnormalities. There was no evidence of ischemia on the imaging portion of the exam. This represents a normal SPECT stress test. Anesthesia Assessment and Plan Anesthesia History Personal History: No History of Anesthesia Complications Family History: No Family History of Anesthesia Complications Exercise Tolerance Exercise Tolerance: Metabolic Equivalents>4 Cardiac & Pulmonary Exam Cardiac Exam: Normal S1/S2 Heart Sounds Pulmonary Exam: Clear Bilateral Breath Sounds Implantable Cardiac Device Does patient have a Pacemaker or an ICD?: No Airway Exam Known Difficult Airway: No Mallampati Class: 2 Mouth Opening: Normal (> 3cm) Thyromental Distance: Greater than 3 cm Neck Range of Motion: Full ROM Neck Circumference: Normal Teeth Condition: Normal Dentition ASA Classification ASA Score: ASA 3 Emergency Case?: No NPO Status NPO Status: NPO Clears >2 hours, Solids >8 hours Anesthesia Plan Resuscitation Status: Full Code Anesthesia Technique: MAC Anesthesia Airway Planned: Natural Airway Monitors Used: Standard Monitors Preoperative Comments:: 77 yo male for repeat cataract. no MKO for previous.
[2023-10-17 10:12] VITALS: BP 132/89; PULSE 55; RESP 18; TEMP 36.3; O2SAT 100
[2023-10-17 10:15] VITALS: BMI 21.6
[2023-10-17] MEDS: Duovisc Viscoelastic System EACH 1 EACH (11:58)
[2023-10-17] MEDS: Lidocaine 1% Pres-Free 5 ML VIAL (11:59)
[2023-10-17] MEDS: Balanced Salt Soln.-PLUS 500 ML BAG OP (12:01)
[2023-10-17] MEDS: Povidone-Iodine Ophth 30 ML BTL (12:01)
[2023-10-17] MEDS: Tetracaine 0.5% 4 ML BTL OD (12:03)
[2023-10-17 12:18] VITALS: BP 148/96; PULSE 54; RESP 16; TEMP 36.1; O2SAT 100
--- NOTE | 2023-10-17 12:19 | W.PM.DSUDISC ---
Date of service: 10/17/23 Time of Service: 12:19 Discharge Plan Disposition Patient Disposition: Home Discharge Details Attending Provider: Naeem Austin Primary Care Provider: Mago Zhang Home Meds and New Rx's Prescriptions: No Action levothyroxine 50 mcg tablet 50 mcg PO DAILY Patient Comments: TAKE 1 TABLET BY MOUTH IN THE MORNING sertraline 50 mg tablet 50 mg PO DAILY Patient Comments: TAKE 1 TABLET BY MOUTH ONCE DAILY lisinopril 10 mg tablet 10 mg PO DAILY Patient Comments: TAKE 1 TABLET BY MOUTH ONCE DAILY niacinamide 500 mg tablet 1,000 mg PO DAILY Patient Comments: TAKE 2 TABLETS BY MOUTH DAILY tamsulosin 0.4 mg capsule 0.4 mg PO DAILY Patient Comments: TAKE 1 CAPSULE BY MOUTH ONCE DAILY mycophenolate sodium [Myfortic] 360 mg tablet,delayed release (DR/EC) 360 mg PO DAILY acetaminophen 500 mg capsule 500 mg PO Q6H PRN mycophenolate mofetil [CellCept] 250 mg capsule 250 mg PO DAILY calcium carbonate 600 mg calcium (1,500 mg) tablet 600 mg PO DAILY tacrolimus [Prograf] 0.5 mg capsule 1 mg PO DIRECTED PreserVision AREDS 2,148 mcg-113 mg-45 mg-17.4mg tablet 2 tab PO DAILY Rx Instructions: administer with a meal cholecalciferol (vitamin D3) [Vitamin D3] 25 mcg (1,000 unit) tablet,chewable 25 mcg PO DAILY simvastatin 20 mg tablet 20 mg PO DAILY Patient Comments: TAKE 1 TABLET BY MOUTH ONCE DAILY AT NIGHT AT BEDTIME aspirin [Adult Aspirin Regimen] 81 mg tablet,delayed release (DR/EC) 81 mg PO DAILY Discharge Instructions Stand Alone Forms: DSU Post-Op CataractSenia ([facility]) Discharge Orders Discharge Orders: Discharge Order (Routine); Ordered 10/17/23 Ordered By: Naeem Austin DS: Diagnosis Discharge Diagnosis (1) Cortical age-related cataract, right eye: Status: Resolved (2) Nuclear age-related cataract, right eye: Status: Resolved
--- NOTE | 2023-10-17 12:20 | ROE_ITS ---
Date of service: 10/17/23 Time of Service: 12:20 Operative Note Operative Note DATE OF PROCEDURE: 10/17/23 PRE-OP DIAGNOSIS: Nuclear/cortical cataract, right eye Poorly dilating pupil, right eye POST-OP DIAGNOSIS: same PROCEDURE: Cataract extraction using phacoemulsification with intraocular lens implant, right eye SURGEON: Naeem Austin ANESTHESIA TYPE: Local By Surgeon and MAC Refer to Anesthesia Record ESTIMATED BLOOD LOSS: 0 PATHOLOGY: none sent COMPLICATIONS: None Patient was transported to: same day Patient's condition: stable Implants: Joe Clareon [id number] Indications: Progressive decreased vision due to cataract, right eye Findings: Floppy iris with poorly dilating pupil Procedure Description: CATARACT SURGERY OPERATIVE REPORT PREOPERATIVE DIAGNOSIS: Nuclear/cortical cataract, right eye poorly dilating pupil, right eye POSTOPERATIVE DIAGNOSIS: Same OPERATION: Cataract extraction using phacoemulsification with posterior chamber intraocular lens implant, right eye. Pupillary dilation and iris stabilization with pupillary expansion device IOL: IOL P[employer] Hatcher[employer] Supervisor/Model: Joe Clareon [id number] IOL Power: + 24.5 diopters IOL Serial Number: [id number] Optic Diameter: 6.0mm Haptic/Overall Diameter: 13.0mm PHACO INFO: Joe [employer] Vision System with OZil and Active Fluidics Cumulative Dispersed Energy (CDE): 7.00 seconds SURGEON: Naeem Austin MD, MARLINE ANESTHESIA: Monitored Anesthesia Care (MAC), with local sub-tenon's anesthetic infiltration COMPLICATIONS: None SPECIMENS: None INDICATIONS FOR PROCEDURE: The patient is a 77-year-old male with history of diminished visual acuity in both eyes secondary to the development of bilateral nuclear/cortical cataract. He has already undergone cataract surgery in the left eye and is doing well postoperatively. He now presents for cataract surgery in the right eye. See office notes for detailed information. Undilated pupil size is 2 mm. Dilated pupil size is 4.0 mm. PROCEDURE: The correct surgical eye was identified and marked as the right eye and the pupil was dilated in the preoperative area using mydriatics and cycloplegics. The dilated pupil size was 4.0 mm. Oral sedation was administered in the form of one half of an Imprimis MKO Melt (midazolam 3mg/ketamine 25mg/ondansetron 2mg). The patient was brought to the operating room where cardiopulmonary monitoring was instituted and surgical time-out was performed, confirming the correct operative eye and IOL power. Topical anesthesia was administered and ophthalmic povidone-iodine 5% was insti lled into the conjunctival fornices. The torie-ocular area was prepped with Betadine 10% solution and draped in the usual sterile fashion for intraocular surgery, including an aperture drape. A Tegaderm transparent film dressing was cut in half and used to cover the lashes and lid margins. Care was taken to sequester the lashes and lid margins under the Tegaderm dressing. A lid speculum was placed between the lids of the operative eye and the Joe Lux[employer] Revalia operating microscope was maneuvered into position. Kenny scissors were then used to make a conjunctival buttonhole approximately 6mm posterior to the limbus in the inferonasal quadrant. Blunt dissection was carried out to expose bare sclera, and a blunt-tipped sub-tenon?s anesthesia cannula was introduced and passed posteriorly along the globe where non- preserved plain lidocaine was injected into posterior sub-Tenon?s space. A sideport knife was used to make a paracentesis port. Intraocular phenylephrine/lidocaine was injected into the anterior chamber. The anterior chamber was then filled with viscoelastic. A keratome knife was used to construct a two--plane clear corneal tunnel extending 2.0mm into clear cornea. A 7.0 mm pupillary expansion device was inserted into the pupillary space and engaged with the Koogler hook. A flap was raised on the anterior capsule and capsulorhexis forceps were used to complete a continuous curvilinear capsulorhexis of 5.5 mm. Balanced salt solution was then used to perform cortical cleaving hydrodissection and nuclear hydrodelineation until the lens could be freely ro tated within the capsular bag. The lens nucleus was then disassembled and removed within the capsular bag and iris plane using phacoemulsification. Residual cortical material was removed using the I/A handpiece. The posterior capsule was carefully polished to remove as much residual lens epithelial cells as safely possible. The capsular bag was then inflated and the anterior chamber deepened with cohesive viscoelastic. The lens implant described above was inserted into the capsular bag using the Joe Autonome Injector. A Kuglen hook was used to dial the IOL into position. The pupil expansion device was then removed in the reverse order of its insertion. Residual viscoelastic was then removed first from posterior to the IOL, then from the anterior chamber using the I/A handpiece. The lens implant was noted to center nicely within the capsular bag. The incisions were stromally hydrated, and the anterior chamber was reformed using BSS. Then 0.5cc of moxifloxacin 1.0mg/ml were injected into the capsular bag and anterior chamber. The incisions were checked with a Weck spear and found to be secure. Several drops of ophthalmic povidone-iodine 5% were then applied to the eye followed by two drops of combination steroid/NSAID/antibiotic solution. The drapes were removed and a clear plastic protective eye shield was placed over the eye. The patient was then returned to Same Day Surgery in stable condition.
--- NOTE | 2023-10-17 12:24 | W.ANESPOSTOP ---
Postoperative Evaluation Date, Time and Location Date Performed: 10/17/23 Time Performed: 12:24 Patient Location: Day Surgery Unit Vital Signs Most Recent Imported Vital Signs: Most Recent Vital Signs Temp Pulse Resp BP Pulse Ox 36.1 C L 54 L 16 148/96 H 100 10/17/23 12:18 10/17/23 12:18 10/17/23 12:18 10/17/23 12:18 10/17/23 12:18 Pain Score Most Recent Pain Score: Most Recent Pain Score Pain Level 0 10/17/23 10:12 Assessment Mental Status: Awake (Alert & Oriented to Patient Baseline) Airway and Respiratory Function: Patent airway with normal (patient baseline) respiratory exam Cardiovascular Function: Hemodynamically Stable Hydration Status: Adequately Hydrated Nausea & Vomiting: No Nausea or Vomiting Pain: Pt. Denies Any Pain Peripheral Nerve Block: Patient did not receive a nerve block
[2023-10-17 12:45] VITALS: BP 153/94; PULSE 60; RESP 16; TEMP 36.2; O2SAT 98
== END 2023-10-17 12:50 | disposition home or self-care (01) ==
LOC: SUR 09:40
PROVIDERS: PCP Family Medicine; Visit Provider Ophthalmology
PROC: (CPT 66982; principal; 2023-10-17 12:15)
DX: H25.011 Cortical age-related cataract, right eye (principal); H25.11 Age-related nuclear cataract, right eye; Z98.42 Cataract extraction status, left eye
CPT/HCPCS: 66982; 00123; V2632; J2003